=== PATIENT | female | born 1990 | race Caucasian/White ===

== ENCOUNTER 2017-02-20 15:16 | Inpatient (IN) | payer OTHER ==
[~2017-02-20] VITALS: Ht 162.6 cm; Wt 71.4 kg
[2017-03-11] VITALS (28 sets, daily range): BP systolic 88–135; BP diastolic 46–86; PULSE 58–90; TEMP 97.5–98.1
[2017-03-11] MEDS ORDERED: PRENATAL MVI PO (07:51)
[2017-03-11 08:15] LABS: BASO # 0.1 (0.0-0.2); BASO % 0.6 % (0.0-2.0); EOS # 0.1 (0.0-0.7); EOS % 0.7 % (0-4.0); GRAN # 8.2 (1.4-6.5); GRAN % 75.7 % (42.2-75.2); HEMOGLOBIN 12.1 g/dl (12.5-16.0); LYMPH # 1.8 (1.2-3.4); LYMPH % 16.2 % (20.0-51.0); MEAN CELL VOLUME 89 fl (80.0-100.0); MEAN CORPUSCULAR HEMOGLOBIN 31 pg (27.0-31.0); MEAN CORPUSCULAR HGB CONC 34 g/dl (33.0-37.0); MEAN PLATELET VOLUME 10.2 fl (7.4-10.4); MONO # 0.7 (0.1-0.6); MONO % 6.3 % (1.7-9.3); PLATELET COUNT 223 K/mm3 (130-400); RED BLOOD COUNT 3.96 M/mm3 (4.10-5.30); REDCELL DISTRIBUTION WIDTH-CV 13.1 % (11.5-14.5); WHITE BLOOD COUNT 10.9 K/mm3 (4.8-10.8)
[2017-03-11 08:17] LABS: HEMATOCRIT 35.4 % (37.0-47.0)
[2017-03-12 08:10] VITALS: BP 100/75; PULSE 85; TEMP 97.6
[2017-03-12 16:44] VITALS: BP 93/52; PULSE 66; TEMP 97.9
[2017-03-12 21:00] VITALS: BP 103/60; PULSE 61; TEMP 97.2
[2017-03-13 06:30] VITALS: BP 107/74; PULSE 69; TEMP 97.9
[2017-03-13] MEDS ORDERED: PERCOCET 325 MG1 TA2 PO (08:50)
[2017-03-13] MEDS ORDERED: IBU800 M1 PO (08:50)
== END 2017-03-13 15:00 | disposition home or self-care (01) | DRG 775 ==
LOC: EDSTATUS 03-11 07:04 → LDR 03-11 07:09 → OB 03-11 07:09 → LDRO 03-11 15:15 → OB 03-11 16:15
PROVIDERS: Obstetrics & Gynecology
PROC: 10E0XZZ Delivery of Products of Conception, External Approach (ICD-10-PCS; principal; 2017-03-11)
PROC: 0KQM0ZZ Repair Perineum Muscle, Open Approach (ICD-10-PCS; 2017-03-11)
DX: O48.0 Post-term pregnancy (principal); O36.0130 Maternal care for anti-D [Rh] antibodies, third trimester, not applicable or unspecified; O70.1 Second degree perineal laceration during delivery; Z3A.40 40 weeks gestation of pregnancy; Z37.0 Single live birth
CPT/HCPCS: J2590; J7120